=== PATIENT | female | born 1975 | race Caucasian/White ===

== ENCOUNTER → 2018-12-26 | Outpatient (CLI) | payer OTHER ==
[~2018-12-26] MED LIST: ACET-716 PO; CONRAY-43 43% 50ML VIAL (Q9960) As Ordered ONE; DOCU10CA PO; NEXI40CA PO; PHEN1SUP6 PO; PROHANCE 279.3MG/ML 5ML VIAL (A9576) As Ordered ONE
--- NOTE | 2018-12-26 10:13 | REP ---
MR ARTHROGRAM RIGHT HIP: TECHNIQUE: Coronal T1, STIR through the pelvis, T2 fat sat, right hip all three planes, axial oblique proton density fat sat right hip. There is a synovial herniation pit in the anterior aspect of the left femoral neck. This measures 7 mm in diameter. No other abnormal bone marrow signal is seen. There is no bone marrow edema or occult fracture. There is no evidence of avascular necrosis. There does appear to be a tear of the anterior superior aspect of the right hip labrum. Other portions of the labrum appear intact. There is no paralabral cyst. Surrounding soft tissue structures demonstrate no abnormal signal. The visualized intrapelvic structures appear unremarkable. IMPRESSION: Right hip demonstrates an apparent tear of the anterior superior aspect of the labrum. No other significant abnormalities. Incidental note is made of a subcentimeter synovial herniation pit in the left femoral neck anteriorly. Electronically Signed by Jc Ponce MD 12/26/2018 11:26 A
--- NOTE | 2018-12-26 11:22 | REP ---
Reason For Exam/Comment: Right hip pain Procedure: Right hip MRI arthrogram The procedure was performed by ADELAIDA Nieto, under the direct supervision of Dr. Ponce. The benefits and risks including but not limited to pain, infection, bleeding and anaphylaxis were explained to the patient and informed consent was obtained both verbally and written. Directly prior to the start of the procedure, a formal timeout was completed in the procedure room. Technique: The right femoral neck was localized using fluoroscopic guidance. The skin was prepped and draped in the usual sterile fashion. 5 mL of 1% lidocaine was used as a local anesthetic. Using fluoroscopic guidance a 22-gauge spinal needle was inserted and advanced to the right femoral neck joint space. 2 mL of Conray 43 was injected to verify needle placement. 12 mL of a solution containing 20 ml of sterile saline and a 0.15 ml of ProHance was injected into the joint. The needle was removed and the patient was taken MRI for post procedural imaging. The patient tolerated the procedure well and there were no immediate complications. 0.2 minutes of fluoroscopy time was utilized for this procedure. Some fluoroscopic images are performed with last image hold technology. These images require no additional radiation. Reviewed by ADELAIDA Tamez 12/26/2018 09:53 A Electronically Signed by Jc Ponce MD 12/26/2018 11:13 A
== END ==
LOC: M RADPRO 06:27
PROVIDERS: ATTEND Student in an Organized Health Care Education/Training Program
DX: M25.551 Pain in right hip (principal); R93.7 Abnormal findings on diagnostic imaging of other parts of musculoskeletal system
CPT/HCPCS: 27093; 73723; 77002; A9576; Q9960

== ENCOUNTER → 2018-12-31 | Outpatient (CLI) | payer OTHER ==
--- NOTE | 2018-12-31 13:28 | REP ---
MR ARTHROGRAM LEFT HIP: TECHNIQUE: Coronal T1, STIR through the pelvis, post arthrogram axial T1 fat sat, T2 fat sat, coronal T1 fat sat, T2 fat sat, sagittal T1 fat sat, axial oblique T1 fat sat left hip. There is no bone marrow edema or occult fracture. There is no evidence of avascular necrosis. There is a subcortical cystic structure in the left femoral neck anteriorly which measures approximately 7 mm in maximum diameter. This is consistent with a small synovial herniation pit. No other osseous abnormality is seen. I see no evidence of a labral tear. There is no paralabral cyst. Surrounding soft tissue structures demonstrate no abnormal signal. There is a normal amount of joint fluid. No other significant findings are seen. IMPRESSION: Small synovial herniation pit anterior left femoral neck. No bone marrow edema, occult fracture or evidence of avascular necrosis. No evidence of a labral tear. Electronically Signed by Jc Ponce MD 12/31/2018 04:36 P
--- NOTE | 2018-12-31 16:35 | REP ---
LEFT HIP ARTHROGRAM The procedure was performed under the direction supervision of Dr. Ponce. The benefits and risks including but not limited to pain, infection, bleeding and anaphylaxis were explained to the patient and informed consent was obtained. The left femoral neck was localized using fluoroscopic guidance. Skin was prepped and draped in a sterile fashion. 1% lidocaine was used as a local anesthetic. Using fluoroscopic guidance a 22 gauge spinal needle was inserted and advanced to the femoral neck. 0.5 ml of Conray 43 was injected to verify placement. 11 ml of a solution containing 20 ml of sterile saline and 0.15 ml of ProHance was injected into the joint. The needle was removed and the patient was taken to MRI for postprocedural imaging. The patient tolerated the procedure well and there were no immediate complications. Less than 6 seconds of fluoro time was utilized for this procedure. Electronically Signed by ADELAIDA Cordova 12/31/2018 02:01 P Electronically Signed by Jc Ponce MD 12/31/2018 04:25 P
== END ==
LOC: M RADPRO 06:39
PROVIDERS: ATTEND Student in an Organized Health Care Education/Training Program
DX: M25.852 Other specified joint disorders, left hip (principal); M25.552 Pain in left hip; Z88.6 Allergy status to analgesic agent; Z88.5 Allergy status to narcotic agent; Z88.8 Allergy status to other drugs, medicaments and biological substances
CPT/HCPCS: 27093; 73723; 77002; A9576; Q9960

== ENCOUNTER → 2019-03-22 | Outpatient (REF) | payer OTHER ==
[~2019-03-22] MED LIST changes: -CONRAY-43 43% 50ML VIAL (Q9960) As Ordered ONE; -PROHANCE 279.3MG/ML 5ML VIAL (A9576) As Ordered ONE
== END ==
LOC: M SFHCLERA 12:18
PROVIDERS: ATTEND Physician Assistant
DX: J02.9 Acute pharyngitis, unspecified (principal); R51 Headache

== ENCOUNTER → 2019-04-16 | Outpatient (CLI) | payer OTHER ==
[~2019-04-16] MED LIST changes: +CONRAY-43 43% 50ML VIAL (Q9960) As Ordered ONE; +LIDOCAINE 1% MDV 20ML VIAL As Ordered ONE; +methylPREDNISolone 80MG/ML SUSP 1ML VIAL (J1040) As Ordered ONE
--- NOTE | 2019-04-16 18:10 | REP ---
RIGHT HIP INJECTION The procedure was performed under the direct supervision of Dr. Laureano. The benefits and risks including but not limited to pain infection bleeding and anaphylaxis were explained to the patient and informed consent was obtained. The right femoral neck was localized using fluoroscopic guidance. The skin was prepped and draped in a sterile fashion. 1% lidocaine was used as a local anesthetic. Using fluoroscopic guidance a 22-gauge spinal needle was inserted and advanced to the femoral neck. 0.5 ml of Conray 43 was injected to verify placement. 5 ml of a solution containing 4 ml of 1% lidocaine and 1 ml of Depo-Medrol 40 mg injected. The needle was then removed. The patient tolerated the procedure well and there were no immediate complications. Less than 6 seconds of fluoroscopy time was utilized for this procedure. Electronically Signed by ADELAIDA Cordova 04/16/2019 04:53 P Electronically Signed by Felipe Laureano MD 04/16/2019 06:02 P
== END ==
LOC: M RADPRO 13:47
PROVIDERS: ATTEND Physician Assistant Surgical
DX: M25.551 Pain in right hip (principal)
CPT/HCPCS: 20610; 77002; J1040; Q9960

== ENCOUNTER 2019-10-06 09:26 | Emergency (ER) | payer OTHER ==
[2019-10-06 09:26] VITALS: BP 129/74
[~2019-10-06 09:26] MED LIST changes: -CONRAY-43 43% 50ML VIAL (Q9960) As Ordered ONE; -LIDOCAINE 1% MDV 20ML VIAL As Ordered ONE; -methylPREDNISolone 80MG/ML SUSP 1ML VIAL (J1040) As Ordered ONE
--- NOTE | 2019-10-06 10:14 | REP ---
Clinical: Trauma. Pain and swelling. Technique: AP, lateral, bilateral oblique and sunrise views right knee . Findings: The osseous structures and joint spaces are intact and normal. There is no evidence for acute fracture or dislocation. No joint effusion is appreciated. Surrounding soft tissues are unremarkable. No subcutaneous emphysema or radiodense foreign body. Impression: Normal examination. No acute fracture or dislocation. Electronically Signed by Brett Leiva MD 10/06/2019 10:05 A
== END 2019-10-06 10:18 | disposition home or self-care (01) ==
LOC: M ED 09:26
DX: S83.92XA Sprain of unspecified site of left knee, initial encounter (principal); X50.1XXA Overexertion from prolonged static or awkward postures, initial encounter; Y92.828 Other wilderness area as the place of occurrence of the external cause; Y93.9 Activity, unspecified; Y99.9 Unspecified external cause status; K21.9 Gastro-esophageal reflux disease without esophagitis; G89.29 Other chronic pain; M54.9 Dorsalgia, unspecified; F32.9 Major depressive disorder, single episode, unspecified; Z79.899 Other long term (current) drug therapy; Z88.6 Allergy status to analgesic agent; Z88.5 Allergy status to narcotic agent; Z88.8 Allergy status to other drugs, medicaments and biological substances

== ENCOUNTER → 2020-07-17 | Outpatient (CLI) | payer OTHER ==
--- NOTE | 2020-07-17 14:57 | REP ---
INDICATION: N60.01 SOLITARY CYST OF RT BREAST. COMPARISON: Mammography and sonography of the right breast on January 13, 2020 are reviewed. These showed a slightly complex cyst in the right breast, BI-RADS category 3. Six-month follow-up study. TECHNIQUE: Routine views of the right breast are augmented by true mL and magnified focal spot-compression images. 3D tomography is performed. A targeted right breast sonography is repeated. This mammogram was interpreted with the aid of an FDA-approved computer-aided detection system. FINDINGS: Scattered fibroglandular elements are again noted in the right breast. The previously noted nodular density seen in the medial aspect of the right breast has regressed mammographically and is not visualized. The orthogonal views remain unremarkable as well. No new density is seen. No spiculation or microcalcification is developed. No worrisome skin change. The Volpara volumetric breast density pattern is B. Targeted ultrasound: Repeat right breast sonography is performed 12:00 to 3:00 in the superomedial quadrant. Mildly heterogeneous fibroglandular background echotexture is seen. No cyst is observed. No hypoechoic nodule or other evidence of mass lesion is seen. No acoustic shadowing seen. IMPRESSION: BIRADS/ACR category 1 negative right breast mammographic and sonographic findings. Previously noted cyst has regressed. This patient's Tyrer-Cuzick lifetime breast cancer risk assessment score is 9.5%. RECOMMENDATION: Repeat bilateral screening mammography suggested in 6 months.. The patient letter being requested is M1. <Electronically signed by Angel Laureano > 07/17/20 [id number]
== END ==
LOC: M WHC 11:56
PROVIDERS: ATTEND Physician Assistant Medical
DX: N60.01 Solitary cyst of right breast (principal)
CPT/HCPCS: 76642; 77065; G0279

== ENCOUNTER → 2021-02-04 | Outpatient (CLI) | payer OTHER ==
--- NOTE | 2021-02-04 10:36 | REPMRS ---
Patient History The patient states she has not had a clinical breast exam in over a year. Family history of endometrial cancer at age 55 in maternal grandmother. Patient states no breast complaints today. Patient has signed MRS History Sheet. Digital Woman Screen Mammo: February 04, 2021 - Exam #: [id number] Bilateral CC and MLO view(s) were taken. Technologist: Oumou Westfall, Technologist Prior study comparison: July 17, 2020, right breast diagnostic unilateral mammo performed at [facility]. January 13, 2020, right breast diagnostic unilateral mammo, performed at [facility]. FINDINGS: There are scattered fibroglandular densities. Screening. Digital screening (2D) mammography was performed bilaterally in the CC and MLO projections. Additionally, breast tomosynthesis (3D mammography) was performed bilaterally in the CC and MLO projections. Todays exam was compared to the prior exam/exams. By history, the patient has no complaints of a palpable breast abnormality or other significant breast complaints. The breasts are unchanged in size and shape. There are no tom-soft tissue densities or spiculated masses. There is no internal architectural distortion. There are no suspicious tom-calcific clusters. Skin thickening or nipple retraction is not present. IMPRESSION: BI-RADS Category 2- Benign Findings. There is no evidence of malignant alteration of the breasts. Followup examination recommended in one year. The Volpara volumetric breast density category is B, there are scattered areas of fibroglandular densities. This mammogram was read with the assistance of [employer],an FDA approved computer aided detection system for mammography. The lifetime Tyrer-Cuzick score is 9.5 % Negative x-ray reports should not delay surgical consultation if a dominant or clinically suspicious mass is present. Not all breast cancers can be identified by mammography. Therefore, we recommend that you continue to perform regular breast self-examination and physical examination and then promptly contact your physician of any concerns or changes. Adenosis and dense breasts may obscure an underlying neoplasm. Assessment: BI-RADS/ACR category 2 mammogram. Benign Findings. Recommendation Routine screening mammogram of both breasts in 1 year. Electronically Signed By: Keny Roa DO 02/04/21 0209
== END ==
LOC: M WHC 07:22
PROVIDERS: ATTEND Physician Assistant Medical
DX: Z12.31 Encounter for screening mammogram for malignant neoplasm of breast (principal); Z80.49 Family history of malignant neoplasm of other genital organs

== ENCOUNTER → 2022-03-11 | Outpatient (CLI) | payer OTHER | LOC: M WHC 16:21 | PROVIDERS: ATTEND Physician Assistant Medical | DX: Z12.31 Encounter for screening mammogram for malignant neoplasm of breast (principal) ==

== ENCOUNTER → 2023-04-12 | Outpatient (CLI) | payer OTHER | LOC: M WHC 07:00 | PROVIDERS: ATTEND Physician Assistant Medical | DX: Z12.31 Encounter for screening mammogram for malignant neoplasm of breast (principal); R92.323 Mammographic fibroglandular density, bilateral breasts ==

== ENCOUNTER → 2024-02-01 | Outpatient (CLI) | payer OTHER | LOC: M WUC 12:54 | PROVIDERS: ATTEND Student in an Organized Health Care Education/Training Program | DX: M79.671 Pain in right foot (principal) ==

== ENCOUNTER → 2024-04-16 | Outpatient (CLI) | payer OTHER | LOC: M WHC 16:25 | PROVIDERS: ATTEND Physician Assistant Medical | DX: Z12.31 Encounter for screening mammogram for malignant neoplasm of breast (principal); R92.313 Mammographic fatty tissue density, bilateral breasts ==